=== PATIENT | male | born 1970 | race Caucasian/White ===

== ENCOUNTER 2021-01-13 14:38 | Emergency (ER) | payer OTHER ==
[2021-01-13 15:09] LABS: HEMOGLOBIN 16.4 gm/dl (14.0-17.5); RED BLOOD COUNT 5.12 M/UL (4.20-5.50); WHITE BLOOD COUNT 6.8 K/UL (4.5-11.0)
[2021-01-13 15:27] LABS: BUN/CREATININE RATIO 12 (0-10)
[2021-01-13] MEDS ORDERED: PROTONIX40 MG PO (19:01)
== END 2021-01-13 19:15 | disposition home or self-care (01) ==
LOC: ER1 14:38
PROVIDERS: Physician Assistant
DX: R07.89 Other chest pain (principal); Z85.038 Personal history of other malignant neoplasm of large intestine
CPT/HCPCS: 71045; 80053; 82550; 82553; 83690; 83874; 84484; 85025; 93005; 99285

== ENCOUNTER 2021-01-31 18:24 | Emergency (ER) | payer SELFPAY ==
[~2021-01-31 18:24] MED LIST: PROTONIX40 MG PO
== END 2021-01-31 19:19 | disposition left against medical advice (07) ==
LOC: ER1 18:24
DX: Z53.21 Procedure and treatment not carried out due to patient leaving prior to being seen by health care provider (principal)